=== PATIENT | female | born 1970 | race Caucasian/White ===

== ENCOUNTER 2017-04-02 07:07 | Emergency (ER) | payer OTHER ==
[2017-04-02 07:14] VITALS: BMI 31.1
--- NOTE | 2017-04-02 07:31 | PDOC ---
History of Present Illness - General Chief Complaint: Pain Stated Complaint: LFT SIDE BODY PAIN/ABD PAIN Time Seen by Provider: 04/02/17 07:28 - History of Present Illness Initial Comments: 04/02/17 07:30 Past History - Past Medical History Allergies/Adverse Reactions: Allergies Allergy/AdvReac Type Severity Reaction Status Date / Time No Known Allergies Allergy Verified 04/02/17 07:14 Home Medications: Ambulatory Orders Cyclobenzaprine HCl 5 mg PO TID PRN #30 tablet 04/02/17 Naproxen [Naprosyn -] 500 mg PO BID PRN #14 tablet 04/02/17 Anemia: No Asthma: No Cancer: No Cardiac Disorders: No CVA: No COPD: No CHF: No Dementia: No Diabetes: No GI Disorders: No Disorders: No HTN: No Hypercholesterolemia: No Kidney Stones: Yes Liver Disease: No Seizures: No Thyroid Disease: No - Surgical History Abdominal Surgery: No Appendectomy: No Cardiac Surgery: No Cholecystectomy: No Lung Surgery: No Neurologic Surgery: No Orthopedic Surgery: No - Psycho/Social/Smoking Cessation Hx Anxiety: No Suicidal Ideation: No Smoking Status: No Smoking History: Never smoked Have you smoked in the past 12 months: No Number of Cigarettes Smoked Daily: 0 Information on smoking cessation initiated: No Hx Alcohol Use: No Drug/Substance Use Hx: No Substance Use Type: None Hx Substance Use Treatment: No *Physical Exam - Vital Signs Last Vital Signs Temp Pulse Resp BP Pulse Ox 97.8 F 87 18 148/101 100 04/02/17 07:12 04/02/17 07:12 04/02/17 07:12 04/02/17 07:12 04/02/17 07:12 ED Treatment Course - LABORATORY CBC & Chemistry Diagram: 04/02/17 09:40 04/02/17 09:40 Medical Decision Making - Medical Decision Making 04/02/17 07:30 46 yo female with complicated pain syndrome involving abdomen and left shoulder , left scapula, lower back Ddx is broad Plan Extensive EKG Ekg: NSR 04/02/17 10:26 04/02/17 12:17 CBC WBC 6.2 K/mm3 (4.0-10.0) D 04/02/17 09:40 RBC 4.19 M/mm3 (3.60-5.2) 04/02/17 09:40 Hgb 13.1 GM/dL (10.7-15.3) 04/02/17 09:40 Hct 38.8 % (32.4-45.2) 04/02/17 09:40 MCV 92.5 fl (80-96) 04/02/17 09:40 MCH 31.1 pg (25.7-33.7) 04/02/17 09:40 MCHC 33.7 g/dl (32.0-36.0) 04/02/17 09:40 RDW 12.4 % (11.6-15.6) 04/02/17 09:40 Plt Count 248 K/MM3 (134-434) 04/02/17 09:40 MPV 9.1 fl (7.5-11.1) 04/02/17 09:40 Neutrophils % 54.9 % (42.8-82.8) 04/02/17 09:40 Lymphocytes % 33.4 % (8-40) D 04/02/17 09:40 Monocytes % 6.9 % (3.8-10.2) 04/02/17 09:40 Eosinophils % 4.0 % (0-4.5) 04/02/17 09:40 Basophils % 0.8 % (0-2.0) 04/02/17 09:40 Grossly within normal limits CMP Sodium 137 mmol/L (136-145) 04/02/17 09:40 Potassium 5.3 mmol/L (3.5-5.1) H 04/02/17 09:40 Chloride 104 mmol/L (98-107) 04/02/17 09:40 Carbon Dioxide 26 mmol/L (21-32) 04/02/17 09:40 Anion Gap 7 (8-16) L 04/02/17 09:40 BUN 11 mg/dL (7-18) D 04/02/17 09:40 Creatinine 0.5 mg/dL (0.55-1.02) L 04/02/17 09:40 Creat Clearance w eGFR > 60 (>60) 04/02/17 09:40 Random Glucose 81 mg/dL (74-106) 04/02/17 09:40 Uric Acid 4.9 mg/dL (2.6-7.2) 04/02/17 09:40 Calcium 8.5 mg/dL (8.5-10.1) 04/02/17 09:40 Total Bilirubin 0.4 mg/dL (0.2-1.0) 04/02/17 09:40 AST 47 U/L (15-37) H D 04/02/17 09:40 ALT 25 U/L (12-78) 04/02/17 09:40 Alkaline Phosphatase 65 U/L (45-117) 04/02/17 09:40 Creatine Kinase 252 IU/L (26-192) H 04/02/17 09:40 Creatine Kinase Index 0.4 % (0.0-5.0) 04/02/17 09:40 CK-MB (CK-2) 1.016 ng/mL (0.5-3.6) 04/02/17 09:40 Troponin I < 0.02 ng/ml (0.00-0.05) 04/02/17 09:40 C-Reactive Protein < 0.3 MG/DL (0.00-0.3) 04/02/17 09:40 Total Protein 7.3 g/dl (6.4-8.2) 04/02/17 09:40 Albumin 3.9 g/dl (3.4-5.0) 04/02/17 09:40 Lipase 171 U/L (73-393) 04/02/17 09:40 Hyperkalemia, Hemolysis reported, elevated CK EKG shows NSR, low CR Less concerning Cardiac enzymes wnl Lipase wnl CRP wnl Imaging CXR wnl Negative shoulder xray Head CT wnl Cervical CT: C4/5, C5/[address]: wnl 04/02/17 12:26 Urine Test Results Urine Color Colorless 04/02/17 10:25 Urine Appearance Clear 04/02/17 10:25 Urine pH 7.0 (5.0-8.0) 04/02/17 10:25 Urine Protein Negative (NEGATIVE) 04/02/17 10:25 Urine Glucose (UA) Negative (NEGATIVE) 04/02/17 10:25 Urine Ketones Negative (NEGATIVE) 04/02/17 10:25 Urine Blood Negative (NEGATIVE) 04/02/17 10:25 Urine Nitrite Negative (NEGATIVE) 04/02/17 10:25 Urine Bilirubin Negative (NEGATIVE) 04/02/17 10:25 negative for infection 04/02/17 13:17 c/o returning pain, Tylenol 1000 04/02/17 13:19 04/02/17 13:20 *DC/Admit/Observation/Transfer Diagnosis at time of Disposition: Shoulder pain Qualifiers: Chronicity: unspecified Laterality: left Qualified Code(s): M25.512 - Pain in left shoulder Back pain Qualifiers: Back pain location: low back pain Chronicity: unspecified Back pain laterality : bilateral Sciatica presence: unspecified whether sciatica present Qualified Code(s): M54.5 - Low back pain Abdominal pain Qualifiers: Abdominal location: lower abdomen, unspecified Qualified Code(s): R10.30 - Lower abdominal pain, unspecified - Discharge Dispostion Disposition: HOME Condition at time of disposition: Stable Admit: No - Prescriptions Prescriptions: Cyclobenzaprine HCl 5 mg PO TID PRN #30 tablet PRN Reason: Pain Naproxen [Naprosyn -] 500 mg PO BID PRN #14 tablet PRN Reason: Pain - Referrals Referrals: Kamryn Woodruff MD [Primary Care Provider] - - Patient Instructions Printed Discharge Instructions: DI for Shoulder Pain Additional Instructions: Your workup today in the emergency department did not indicate any acute causes for your shoulder, back or abdominal pain. As we discussed, we did not find anything that is immediately concerning and have exhausted our ability to further work up this problem. Your best next step is to keep you appointment with Dr. Woodruff next week and provide him with the results from our workup today. He can best determine which specialists you should see. I have sent two prescriptions to your pharmacy to help with your pain. You can take naproxen 500 mg every 12 hours as needed for pain. You can also take the cyclobenzaprine 5 mg every 8 hours if this helps with the pain. This medication can make you tired and you should be careful driving or operation an automobile while taking this medication. If you start to experience worsening or new or concerning symptoms prior to your appointment you should return to the ED immediately.
[2017-04-02] MEDS ORDERED: morphine CARPU-JECT 4 MG/1 ML DISP.SYRIN IVPUSH ONE (08:43)
[2017-04-02] MEDS ORDERED: SODIUM CHLORIDE 1,000 ML IV STA (08:43)
--- NOTE | 2017-04-02 08:46 | PDOC ---
Attending Attestation - Resident Resident Name: Ricardo Grande - ED Attending Attestation I have performed the following: I have examined & evaluated the patient, The case was reviewed & discussed with the resident, I agree w/resident's findings & plan, Exceptions are as noted - HPI HPI: 04/02/17 08:41 46-year-old female with history of irritable bowel syndrome presents with multiple complaints. The patient has been reporting for last several months of having lower back pain with vague lower abdominal pain. 6 months ago, she had episodes of bloody stools that resolved. She states when she did have the abdominal pain to be sharp and stabbing with intermittent constipation. She reports that this feels different from her prior irritable bowel syndrome. Patient noted that this has been progressively worsening has recently made an appointment with an sociocultural anthropology professor, turpentine distiller, orthopedist. However, today , patient woke up and felt numbness in the left ulnar distribution as well as severe left shoulder pain that is nontraumatic. Came into the ED for further evaluation. - Physicial Exam PE: 04/02/17 08:39 GENERAL: Awake, alert, and fully oriented, in no acute distress. HEAD: No signs of trauma EYES: PERRLA, EOMI, sclera anicteric, conjunctiva clear ENT: Auricles normal inspection, hearing grossly normal, nares patent, oropharynx clear without exudates. ~C8 TTP, but no stepoffs. NECK: Normal ROM, supple, no lymphadenopathy, JVD, or masses LUNGS: Breath sounds equal, clear to auscultation bilaterally. No wheezes, and no crackles HEART: Regular rate and rhythm, normal S1 and S2, no murmurs, rubs or gallops. TTP left mid clavicular and left anterior shoulder. ABDOMEN: TTP RLQ, suprapubic, LLQ. Soft, normoactive bowel sounds. No guarding , no rebound. No masses EXTREMITIES: Normal range of motion, no edema. No clubbing or cyanosis. No cords, erythema, or tenderness NEUROLOGICAL: Cranial nerves II through XII intact. Normal speech, normal gait. No pronator drift. Speech normal. No dysmetria. FTN WNL. Rapid alternating normal. 5/5 strength upper and lower extremities. Decreased sensation along in the distal ulnar distribution of left upper extremity. SKIN: Warm, Dry, normal turgor, no rashes or lesions noted. - Medical Decision Making 04/02/17 08:44 Vital Signs Temp Pulse Resp BP Pulse Ox 97.8 F 87 18 148/101 100 04/02/17 07:12 04/02/17 07:12 04/02/17 07:12 04/02/17 07:12 04/02/17 07:12 It is unclear what the etiology is at this point. Worst case scenario would be even the multiple bony complaints and blood in stool several months ago that this could be malignancy. We'll obtain a CAT scan with IV contrast of the chest , abdomen and pelvis. Within differential is also rheumatological. We'll also obtain a left shoulder x-ray. Given the numbness in the left upper extremity, it is likely more peripheral but we'll obtain a CAT scan the head and C-spine. Blood work, urinalysis and reassess. Differential includes irritable bowel disease, malignancy, arthritis, rheumatological disease. 04/02/17 13:49 CBC, BMP 04/02/17 09:40 04/02/17 09:40 CMP Sodium 137 mmol/L (136-145) 04/02/17 09:40 Potassium 5.3 mmol/L (3.5-5.1) H 04/02/17 09:40 Chloride 104 mmol/L (98-107) 04/02/17 09:40 Carbon Dioxide 26 mmol/L (21-32) 04/02/17 09:40 Anion Gap 7 (8-16) L 04/02/17 09:40 BUN 11 mg/dL (7-18) D 04/02/17 09:40 Creatinine 0.5 mg/dL (0.55-1.02) L 04/02/17 09:40 Creat Clearance w eGFR > 60 (>60) 04/02/17 09:40 Random Glucose 81 mg/dL (74-106) 04/02/17 09:40 Uric Acid 4.9 mg/dL (2.6-7.2) 04/02/17 09:40 Calcium 8.5 mg/dL (8.5-10.1) 04/02/17 09:40 Total Bilirubin 0.4 mg/dL (0.2-1.0) 04/02/17 09:40 AST 47 U/L (15-37) H D 04/02/17 09:40 ALT 25 U/L (12-78) 04/02/17 09:40 Alkaline Phosphatase 65 U/L (45-117) 04/02/17 09:40 Creatine Kinase 252 IU/L (26-192) H 04/02/17 09:40 Creatine Kinase Index 0.4 % (0.0-5.0) 04/02/17 09:40 CK-MB (CK-2) 1.016 ng/mL (0.5-3.6) 04/02/17 09:40 Troponin I < 0.02 ng/ml (0.00-0.05) 04/02/17 09:40 C-Reactive Protein < 0.3 MG/DL (0.00-0.3) 04/02/17 09:40 Total Protein 7.3 g/dl (6.4-8.2) 04/02/17 09:40 Albumin 3.9 g/dl (3.4-5.0) 04/02/17 09:40 Lipase 171 U/L (73-393) 04/02/17 09:40 Urine Test Results Urine Color Colorless 04/02/17 10:25 Urine Appearance Clear 04/02/17 10:25 Urine pH 7.0 (5.0-8.0) 04/02/17 10:25 Urine Protein Negative (NEGATIVE) 04/02/17 10:25 Urine Glucose (UA) Negative (NEGATIVE) 04/02/17 10:25 Urine Ketones Negative (NEGATIVE) 04/02/17 10:25 Urine Blood Negative (NEGATIVE) 04/02/17 10:25 Urine Nitrite Negative (NEGATIVE) 04/02/17 10:25 Urine Bilirubin Negative (NEGATIVE) 04/02/17 10:25 04/02/17 13:50 CT and xrays reviewed with no acute findings. The patient will however require a rheumatological and orthopedic workup. Will touch base with pt's PMD. If patient feels better and pt's PMD is okay, will have patient pursue outpatient workup. Heart Score/ECG Review #1 ECG reviewed & interpreted by me at: 09:30 04/02/17 10:08 NSR 88, TWI III, n ostd/nilda, normal axis, normal intervals, QTC 464 msec
[2017-04-02] MEDS ORDERED: morphine CARPU-JECT 4 MG/1 ML DISP.SYRIN ONE (09:13)
[2017-04-02 10:08] LABS: BASOPHIL 0.8 % (0-2.0); MCH 31.1 pg (25.7-33.7); MCHC 33.7 g/dl (32.0-36.0); MEAN CELL VOLUME 92.5 fl (80-96); MEAN PLT VOLUME 9.1 fl (7.5-11.1); NEUTROPHILS 54.9 % (42.8-82.8); PLATELET COUNT 248 K/MM3 (134-434); RDW 12.4 % (11.6-15.6); WHITE BLOOD COUNT 6.2 K/mm3 (4.0-10.0)
--- NOTE | 2017-04-02 10:20 | EKG ---
Test Reason : Blood Pressure : / mmHG Vent. Rate : 088 BPM Atrial Rate : 088 BPM P-R Int : 140 ms QRS Dur : 086 ms QT Int : 384 ms P-R-T Axes : 043 014 002 degrees QTc Int : 464 ms NORMAL SINUS RHYTHM NORMAL ECG WHEN COMPARED WITH ECG OF 27-JUN-2016 08:46, NO SIGNIFICANT CHANGE WAS FOUND REPEAT EKG IF CLINICALLY INDICATED Confirmed by JENNIE JONES MD ([id number] on 04/02/2017 10:20:13 AM Referred By: Confirmed By:JENNIE JONES MD
[2017-04-02 10:39] LABS: URINE APPEARANCE CLEAR; URINE BILIRUBIN NEGATIVE (NEGATIVE); URINE BLOOD NEGATIVE (NEGATIVE); URINE GLUCOSE (UA) NEGATIVE (NEGATIVE); URINE KETONE NEGATIVE (NEGATIVE); URINE LEUK ESTERASE NEGATIVE (NEGATIVE); URINE NITRITE NEGATIVE (NEGATIVE); URINE PROTEIN NEGATIVE (NEGATIVE); URINE UROBILINOGEN 0.2 mg/dL (0.2-1.0)
[2017-04-02 10:40] LABS: URINE COLOR COLORLESS
[2017-04-02 10:47] LABS: C-REACTIVE PROTEIN < 0.3 MG/DL (0.00-0.3)
[2017-04-02 11:11] LABS: ALBUMIN 3.9 g/dl (3.4-5.0); ALK PHOS 65 U/L (45-117); ANION GAP 7 (8-16); BILIRUBIN,TOTAL 0.4 mg/dL (0.2-1.0); CALCIUM 8.5 mg/dL (8.5-10.1); CO2 26 mmol/L (21-32); CREATININE 0.5 mg/dL (0.55-1.02); GLUCOSE,RANDOM 81 mg/dL (74-106); SGPT/ALT 25 U/L (12-78); TOT PROT 7.3 g/dl (6.4-8.2); TROPONIN I < 0.02 ng/ml (0.00-0.05); URIC ACID 4.9 mg/dL (2.6-7.2)
[2017-04-02 11:12] LABS: CPK 252 IU/L (26-192); SGOT/AST 47 U/L (15-37)
[2017-04-02] MEDS ORDERED: ACETAMINOPHEN 500 MG TABLET (FP) PO ONE (13:16)
[2017-04-02] MEDS ORDERED: ACETAMINOPHEN 325 MG TABLET (FP) ONE (13:17)
[2017-04-02 15:39] VITALS: BP 140/85; PULSE 82; TEMP 98.2
== END 2017-04-02 15:39 | disposition home or self-care (01) ==
LOC: JER 07:07
PROC: 3E033NZ Introduction of Analgesics, Hypnotics, Sedatives into Peripheral Vein, Percutaneous Approach (ICD-10-PCS; principal; 2017-04-02)
DX: R10.30 Lower abdominal pain, unspecified (principal); M54.5 Low back pain; E87.5 Hyperkalemia
CPT/HCPCS: 36415; 70450-TC; 71020-TC; 71260-TC; 72125-TC; 73030-TC-LT; 74177-TC; 80053; 81003; 82553; 83690; 84484; 84550; 84703; 85025; 85651; 86140; 93005; 93010; 99282-25

== ENCOUNTER 2021-12-25 09:55 | Emergency (ER) | payer BC, OTHER ==
[2021-12-25 10:15] VITALS: PULSE 90; TEMP 97.4; BMI 33.4
[2021-12-25] MEDS ORDERED: MECLIZINE HCL 25 MG TABLET (FP) PO ONE (10:30)
[2021-12-25] MEDS ORDERED: METOCLOPRAMIDE HCL INJECTION 10 MG/2 ML VIAL IVPUSH ONE (10:38)
[2021-12-25] MEDS ORDERED: METOCLOPRAMIDE HCL INJECTION 10 MG/2 ML VIAL ONE (10:52)
[2021-12-25] MEDS ORDERED: MECLIZINE HCL 25 MG TABLET (FP) ONE (11:21)
[2021-12-25 11:49] VITALS: BP 144/90
== END 2021-12-25 11:56 | disposition home or self-care (01) ==
LOC: JER 09:55
PROC: 3E033GC Introduction of Other Therapeutic Substance into Peripheral Vein, Percutaneous Approach (ICD-10-PCS; principal; 2021-12-25)
DX: R42 Dizziness and giddiness (principal)
CPT/HCPCS: 93005; 93010; 99284-25

== ENCOUNTER 2022-05-14 12:15 | Emergency (ER) | payer BC, OTHER ==
[2022-05-14 12:27] VITALS: RESP 16; TEMP 98.1; BMI 31.9
[2022-05-14] MEDS ORDERED: KETOROLAC TROMETHAMINE 30 MG/1 ML VIAL IVPUSH ONE (12:56)
[2022-05-14] MEDS ORDERED: SODIUM CHLORIDE 1,000 ML IV ONE (12:56)
[2022-05-14] MEDS ORDERED: KETOROLAC TROMETHAMINE 15 MG/ML VIAL ONE (12:57)
[2022-05-14 13:12] LABS: HEMATOCRIT 41.4 % (32.4-45.2); HEMOGLOBIN 14.3 G/dL (10.7-15.3); MCH 31.6 pg (25.7-33.7); MCHC 34.4 g/dl (32.0-36.0); MEAN CELL VOLUME 91.7 fl (80-96); MEAN PLT VOLUME 8.2 fl (7.5-11.1); PLATELET COUNT 268.7 10^3/uL (134-434); RBC 4.51 10^6/uL (3.60-5.2); RDW 13.5 % (11.6-15.6); WHITE BLOOD COUNT 7.8 10^3/uL (4.0-10.8)
[2022-05-14 13:25] LABS: ALBUMIN 4.6 g/dl (3.4-5.0); BILIRUBIN,TOTAL 0.7 mg/dl (0.2-1); CALCIUM 10.1 mg/dl (8.5-10); CREATININE 0.6 mg/dl (0.55-1.3); TOT PROT 7.7 g/dl (6.4-8.2)
[2022-05-14 16:15] VITALS: BP 145/93; PULSE 77
== END 2022-05-14 15:40 | disposition home or self-care (01) ==
LOC: FER 12:15
PROC: 3E0233Z Introduction of Anti-inflammatory into Muscle, Percutaneous Approach (ICD-10-PCS; principal; 2022-05-14)
PROC: 3E0337Z Introduction of Electrolytic and Water Balance Substance into Peripheral Vein, Percutaneous Approach (ICD-10-PCS; 2022-05-14)
DX: M54.50 Low back pain, unspecified (principal)
CPT/HCPCS: 36415; 74176-TC; 80053; 81003; 85027; 99285-25

== ENCOUNTER 2022-10-27 13:26 | Emergency (ER) | payer BC, OTHER ==
[2022-10-27 13:56] VITALS: BP 158/99; PULSE 98; RESP 18; TEMP 98.3; BMI 32.6
[2022-10-27] MEDS ORDERED: IBUPROFEN 600 MG TABLET (FP) PO ONE ×2 (14:10→14:14)
== END 2022-10-27 16:39 | disposition home or self-care (01) ==
LOC: FER 13:26
DX: S83.411A Sprain of medial collateral ligament of right knee, initial encounter (principal); W01.0XXA Fall on same level from slipping, tripping and stumbling without subsequent striking against object, initial encounter; X50.0XXA Overexertion from strenuous movement or load, initial encounter
CPT/HCPCS: 72070-TC-FY; 72100-TC-FY; 73562-TC-RT-FY; 99285-25

== ENCOUNTER 2024-01-24 04:13 | Day surgery (SDC) | payer BC, OTHER ==
[2024-01-22 13:32] VITALS: BMI 33.4
[2024-01-24 10:11] VITALS: BP 127/77; PULSE 64; RESP 18; TEMP 98
== END 2024-01-24 10:10 | disposition home or self-care (01) ==
LOC: JASU-ENDO 04:13
PROVIDERS: ATTEND Internal Medicine Gastroenterology
PROC: 0DB98ZX Excision of Duodenum, Via Natural or Artificial Opening Endoscopic, Diagnostic (ICD-10-PCS; 2024-01-24)
PROC: 0DB78ZX Excision of Stomach, Pylorus, Via Natural or Artificial Opening Endoscopic, Diagnostic (ICD-10-PCS; 2024-01-24)
PROC: 0DB68ZX Excision of Stomach, Via Natural or Artificial Opening Endoscopic, Diagnostic (ICD-10-PCS; 2024-01-24)
PROC: 0DB48ZX Excision of Esophagogastric Junction, Via Natural or Artificial Opening Endoscopic, Diagnostic (ICD-10-PCS; 2024-01-24)
PROC: 0DJD8ZZ Inspection of Lower Intestinal Tract, Via Natural or Artificial Opening Endoscopic (ICD-10-PCS; principal; 2024-01-24 09:00)
DX: Z12.11 Encounter for screening for malignant neoplasm of colon (principal); K57.30 Diverticulosis of large intestine without perforation or abscess without bleeding; K29.50 Unspecified chronic gastritis without bleeding; K44.9 Diaphragmatic hernia without obstruction or gangrene; K21.00 Gastro-esophageal reflux disease with esophagitis, without bleeding; K22.70 Barrett's esophagus without dysplasia
CPT/HCPCS: 43239; G0121; 88305-TC; 88342-TC